=== PATIENT | female | born 1995 | race Caucasian/White ===

== ENCOUNTER 2016-08-03 20:32 | Emergency (ER) | payer OTHER ==
[2016-08-03 20:39] VITALS: BP 144/89
[2016-08-03] MEDS ORDERED: Ketorolac INJ* 30 MG/ML 1 ML VIAL IM ONE (20:46)
[2016-08-03] MEDS ORDERED: HYDROcodone/ACETAMIN 5-325 MG* 1 TAB PO ONE (20:46)
[2016-08-03] MEDS ORDERED: DOXYcycline CAP(*) 100 MG PO ONE (21:23)
--- NOTE | 2016-08-03 21:30 | UC ---
Dental HPI - HPI Summary HPI Summary: 21 yo female with severe toothache x days no relief with nsaids or tylenol feels swollen allegies confirmed to PCN and CLinda - History of Current Complaint Chief Complaint: UCDentalProblem Stated Complaint: TOOTHACHE Time Seen by Provider: 08/03/16 20:35 Hx Obtained From: Patient Hx Last Menstrual Period: 01/16/16 Onset/Duration: Gradual Onset, Lasting Days Severity: Severe Pain Intensity: 10 Pain Scale Used: 0-10 Numeric Aggravating: Heat, Cold, Chewing Alleviating: Nothing Related History: Swelling - Allergies/Home Medications Allergies/Adverse Reactions: Allergies Allergy/AdvReac Type Severity Reaction Status Date / Time Amoxicillin Allergy Rash Verified 08/03/16 20:39 Cephalexin [From Keflex] Allergy Rash Verified 08/03/16 20:39 Clindamycin Allergy Hives or Verified 08/03/16 20:39 Rash Penicillins Allergy Itching Verified 08/03/16 20:39 Home Medications: Home Medications Ibuprofen TAB* [Motrin TAB* 800 MG] 800 mg PO ONCE 08/03/16 [History Confirmed 08/03/16] PMH/Surg Hx/FS Hx/Imm Hx Previously Healthy: Yes Endocrine History Of: Reports: Thyroid Disease - hypo Cardiovascular History Of: Denies: Cardiac Disorders, Hypertension, Pacemaker/ICD, Myocardial Infarction , Congestive Heart Failure, Atrial Fibrillation, Deep Vein Thrombosis, Bleeding Disorders Respiratory History Of: Reports: Asthma Denies: COPD, Bronchitis, Pneumonia, Pulmonary Embolism GI/ History Of: Denies: Gastroesophageal Reflux, Ulcer, Gastrointestinal Bleed, Gall Bladder Disease, Kidney Stones, Diverticulitis, Renal Disease, Urosepsis Neurological History Of: Denies: TIA, CVA, Dementia, Seizures, Migraine Psychological History Of: Denies: Anxiety, Depression, Bipolar Disorder, Schizophrenia, Post Traumatic Stress Disorder Cancer History Of: Denies: Lung Cancer, Colorectal Cancer, Breast Cancer, Prostate Cancer, Cervical Cancer Other History Of: Negative For: HIV, Hepatitis B, Hepatitis C, Anticoagulant Therapy - Surgical History Surgical History: None - Family History Known Family History: Positive: Cardiac Disease, Hypertension - Social History Alcohol Use: Weekly Alcohol Amount: a couple times a week she gets drunk with friends Substance Use Type: Marijuana Substance Use Comment - Amount & Last Used: not lately Smoking Status (MU): Never Smoked Tobacco - Immunization History Most Recent Influenza Vaccination: current Most Recent Tetanus Shot: 2008 Review of Systems Constitutional: Negative Skin: Negative Eyes: Negative ENT: Dental Pain Respiratory: Negative Cardiovascular: Negative Gastrointestinal: Negative Genitourinary: Negative Motor: Negative Neurovascular: Negative Musculoskeletal: Negative Neurological: Negative Psychological: Negative All Other Systems Reviewed And Are Negative: Yes Physical Exam Triage Information Reviewed: Yes Appearance: Well-Appearing, Well-Nourished, Pain Distress Vital Signs: Initial Vital Signs Temp 98.8 F 08/03/16 20:35 Pulse 84 08/03/16 20:35 Resp 18 08/03/16 20:35 BP 144/89 08/03/16 20:35 Pulse Ox 100 08/03/16 20:35 Vital Signs Reviewed: Yes Eyes: Positive: Conjunctiva Clear ENT: Positive: Normal ENT inspection Dental: Positive: Other: - see image Neck exam: Normal Neck: Positive: Supple, Nontender, No Lymphadenopathy Respiratory: Positive: Lungs clear, Normal breath sounds, No respiratory distress, No accessory muscle use Cardiovascular: Positive: RRR, No Murmur Musculoskeletal: Positive: Strength Intact, ROM Intact Neurological: Positive: Alert Psychological Exam: Normal Skin Exam: Normal Dental Complaint Course/Dx - Differential Dx/Diagnosis Provider Diagnoses: dental abscess Discharge - Discharge Plan Condition: Stable Disposition: HOME Prescriptions: DOXYcycline CAP(*) [DOXYcycline 100MG CAP(*)] 100 mg PO BID #14 cap HYDROcodone/ACETAMIN 5-325 MG* [[place] 5-325 TAB*] 1 tab PO Q4H PRN #12 tab MDD 6 PRN Reason: Pain Patient Education Materials: Dental Abscess (ED) Forms: *Work Release Referrals: Antwan Fernández MD [Primary Care Provider] - Additional Instructions: Because of your allergies to penicillin and clindamycin there are no good oral antibiotic available to give you The doxy may help If not improving for if things worse GO TO THE ER you need to call your dentist in AM for follow up Continue motrin (ibuprofen) 600mg 4x day Images Dental: 1 - abscess
== END 2016-08-03 21:34 | disposition home or self-care (01) ==
LOC: UCCORT 20:32
DX: K04.7 Periapical abscess without sinus (principal); J45.909 Unspecified asthma, uncomplicated; Z88.1 Allergy status to other antibiotic agents; Z88.0 Allergy status to penicillin
CPT/HCPCS: 96372; 99213; A9270-GY; G0463; J1885

== ENCOUNTER 2016-11-11 08:32 | Emergency (ER) | payer OTHER ==
[2016-11-11 08:47] VITALS: BP 127/82
--- NOTE | 2016-11-11 08:51 | UC ---
Dental HPI - HPI Summary HPI Summary: Right upper dental pain since yesterday morning. Had same Sx 2 months ago and given doxy and hydro. Per patient APAP and NSAIDs with no relief. She went to the dentist who placed her on zpack and stopped the doxy. She is awaiting extraction at this time. No dentist at this time. No fever. [ End ] - History of Current Complaint Chief Complaint: UCDentalProblem Stated Complaint: DENTAL PAIN Time Seen by Provider: 11/11/16 08:49 Hx Obtained From: Patient Hx Last Menstrual Period: has trever ?: No Onset/Duration: Gradual Onset Aggravating: Chewing - Allergies/Home Medications Allergies/Adverse Reactions: Allergies Allergy/AdvReac Type Severity Reaction Status Date / Time Amoxicillin Allergy Rash Verified 11/11/16 08:42 Cephalexin [From Keflex] Allergy Rash Verified 11/11/16 08:42 Clindamycin Allergy Hives or Verified 11/11/16 08:42 Rash Penicillins Allergy Itching Verified 11/11/16 08:42 Home Medications: Home Medications busPIRone TAB* [Buspar TAB*] 10 mg PO BID 11/11/16 [History Confirmed 11/11/16] PMH/Surg Hx/FS Hx/Imm Hx Previously Healthy: Yes Other History Of: Negative For: HIV, Hepatitis B, Hepatitis C, Anticoagulant Therapy - Surgical History Surgical History: None - Family History Known Family History: Positive: Unknown, Cardiac Disease, Hypertension - Social History Occupation: Employed Full-time - [employer] Alcohol Use: Occasionally Alcohol Amount: a couple times a week she gets drunk with friends Substance Use Type: None Substance Use Comment - Amount & Last Used: not lately Smoking Status (MU): Never Smoked Tobacco - Immunization History Most Recent Influenza Vaccination: current Most Recent Tetanus Shot: 2007 Review of Systems ENT: Dental Pain All Other Systems Reviewed And Are Negative: Yes Physical Exam Triage Information Reviewed: Yes Appearance: Well-Appearing, Well-Nourished Vital Signs: Initial Vital Signs Temp 98.0 F 11/11/16 08:43 Pulse 80 11/11/16 08:43 Resp 16 11/11/16 08:43 BP 127/82 11/11/16 08:43 Pulse Ox 100 11/11/16 08:43 Vital Signs Reviewed: Yes Eye Exam: Normal ENT Exam: Normal Dental Exam: Normal Neck exam: Normal Neck: Positive: 1 Respiratory Exam: Normal Cardiovascular Exam: Normal Musculoskeletal Exam: Normal Neurological Exam: Normal Psychological Exam: Normal Skin Exam: Normal Dental Complaint Course/Dx - Course Course Of Treatment: To see densist next week for extraction and restart the z pack she got before from dentist . avoid > 2400 mg motrin if taking any and advised to not take it with the indocin. can also use APAP < 3 gm daily. - Differential Dx/Diagnosis Differential Diagnosis/Dx: Dental Abscess, Dental Caries, Fractured Tooth, Gingivitis, Odontogenic Pain, Peridontic Disease Provider Diagnoses: Dental caries/abscess Discharge - Discharge Plan Condition: Good Disposition: HOME Prescriptions: Azithromyxin CARTER (NF) [Z-Carter (Zithromax) 250 mg tabs #6] 2 tab PO .TODAY, THEN 1 DAILY #6 tab Indomethacin CAP* [Indocin CAP*] 50 mg PO TID PRN #21 cap PRN Reason: Pain Patient Education Materials: Dental Abscess (ED) Referrals: Antwan Fernández MD [Primary Care Provider] - 3 Days (Please follow up with a dentist SAMANTHA) Additional Instructions: As we discussed you have multiple allergies to antibiotics that we like to use for dental infections and will restart the z pack . Please follow up with a dentist for further evaluation. You may rotate tylenol and the indomethacin medication which is an NSAID so please refrain from using any motrin when using indomethacin Images Dental: 1 - dental caries / gum swelling / tenderness
== END 2016-11-11 09:13 | disposition home or self-care (01) ==
LOC: UCCORT 08:32
DX: K02.9 Dental caries, unspecified (principal); K04.7 Periapical abscess without sinus; Z88.1 Allergy status to other antibiotic agents; Z88.0 Allergy status to penicillin
CPT/HCPCS: 99212; G0463